=== PATIENT | female | born 1950 | race Caucasian/White ===

== ENCOUNTER 2018-05-08 12:47 | Emergency (ER) | payer MEDICARE ==
[~2018-05-08] VITALS: Ht 165.1 cm; Wt 57.0 kg
[2018-05-08 12:55] VITALS: BP 124/69
[2018-05-08] MEDS ORDERED: QUET50TA PO (13:09)
== END 2018-05-08 13:16 | disposition home or self-care (01) ==
LOC: ER 12:48
DX: E03.9 Hypothyroidism, unspecified (principal); Z76.0 Encounter for issue of repeat prescription; Z88.8 Allergy status to other drugs, medicaments and biological substances; Z56.0 Unemployment, unspecified
CPT/HCPCS: 99283